=== PATIENT | female | born 1975 | race Caucasian/White ===

== ENCOUNTER 2019-08-06 10:52 | Emergency (ER) | payer OTHER ==
--- NOTE | 2019-08-06 10:58 | UC ---
Hand/Wrist HPI - HPI Summary HPI Summary: 43 yo female presents with LEFT hand injury. 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 Since that time has had pain at the base of her 4th digit. She is left handed. 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 Nothing OTC for symptoms. Denies numbness or tingling. - History Of Current Complaint Stated Complaint: FINGER INJURY Time Seen by Provider: 08/06/19 10:58 Hx Obtained From: Patient Onset/Duration: Sudden Onset Severity Initially: Moderate Severity Currently: Moderate Pain Intensity: 7 Pain Scale Used: 0-10 Numeric - Allergies/Home Medications Allergies/Adverse Reactions: Allergies Allergy/AdvReac Type Severity Reaction Status Date / Time No Known Allergies Allergy Verified 08/06/19 11:11 Home Medications: Home Medications Losartan TAB* [Cozaar TAB*] 100 mg PO DAILY 08/06/19 [History Confirmed 08/06/19 ] amLODIPine TAB* [Norvasc 5 mg TAB*] 10 mg PO DAILY 08/06/19 [History Confirmed 08/06/19] PMH/Surg Hx/FS Hx/Imm Hx Cardiovascular History: Hypertension - Surgical History Surgical History: Yes Other Surgical History: tramaine t/a - Family History Known Family History: Positive: None - Social History Occupation: Employed Full-time Lives: With Family Alcohol Use: Occasionally Substance Use Type: None Smoking Status (MU): Never Smoked Tobacco Review of Systems All Other Systems Reviewed And Are Negative: No Constitutional: Positive: Negative Skin: Positive: Negative Respiratory: Positive: Negative Cardiovascular: Positive: Negative Neurovascular: Positive: Negative Musculoskeletal: Positive: Other: - Left hand injury Neurological/Mental Status: Positive: Negative Psychological: Positive: Negative Physical Exam - Summary Physical Exam Summary: GENERAL: NAD. WDWN. No pain distress. SKIN: No rashes, sores, lesions, or open wounds. CHEST: No accessory muscle use. Breathing comfortably and in no distress. CV: Pulses intact radial and ulnar. Cap refill <2seconds MSK: LEFT HAND: 4th digit with TTP at base near MCP. Pain at this site with movement of 3rd and 5th MCP. NTTP MC or wrist. Unable to bend MCP 4th. No edema or obvious bony deformities. NEURO: Alert. Sensations intact hand and all fingers. PSYCH: Age appropriate behavior. Triage Information Reviewed: Yes Vital Signs: Vital Signs: Temp Pulse Resp BP Pulse Ox 98 F 83 17 122/90 100 08/06/19 11:08 08/06/19 11:08 08/06/19 11:08 08/06/19 11:08 08/06/19 11:08 Vital Signs Reviewed: Yes Diagnostics - Radiology Hand XR Radiology Interpretation Completed By: Radiologist Summary of Radiographic Findings: REPORT AND IMPRESSION: #. Negative for fracture or dislocation. #. Preserved joint spaces. #. Mild nonfocal soft tissue swelling at the fingers. Hand/Wrist Course/Dx - Course Course Of Treatment: XR as above. Suspect sprain of finger. She was placed in a finger splint for comfort. Advised to RICE and f/u with Orthopedics if symptoms not improved within 5 days - Differential Dx/Diagnosis Provider Diagnosis: Finger sprain Discharge ED - Sign-Out/Discharge Documenting (check all that apply): Patient Departure All imaging exams completed and their final reports reviewed: Yes - Discharge Plan Condition: Stable Disposition: HOME Patient Education Materials: Finger Sprain (ED) Forms: *Work Release Referrals: Oralia Kaur MD [Primary Care Provider] - Additional Instructions: If you develop a fever, shortness of breath, chest pain, new or worsening symptoms - please call your PCP or go to the ED immediately. 1) Rest, Ice, and elevate your hand/finger to reduce pain 2) Use the finger splint for comfort 3) If your symptoms have not improved by Saturday, please call Orthopedics at the number below to schedule an appointment for a recheck - Billing Disposition and Condition Condition: STABLE Disposition: Home
== END 2019-08-06 12:11 | disposition home or self-care (01) ==
LOC: UCEAST 10:52
DX: S63.615A Unspecified sprain of left ring finger, initial encounter (principal); I10 Essential (primary) hypertension; M79.89 Other specified soft tissue disorders; Z79.899 Other long term (current) drug therapy; W21.89XA Striking against or struck by other sports equipment, initial encounter; Y93.43 Activity, gymnastics; Y92.39 Other specified sports and athletic area as the place of occurrence of the external cause; Y99.0 Civilian activity done for income or pay
CPT/HCPCS: 99202; G0463